=== PATIENT | male | born 1985 | race Caucasian/White ===

== ENCOUNTER 2017-01-06 08:00 | Observation (INO) | payer MEDICAID ==
[~2017-01-06] VITALS: Ht 167.6 cm; Wt 56.8 kg
[2017-01-06 15:06] VITALS: BP 108/80; PULSE 84; TEMP 98.8
== END 2017-01-06 17:00 | disposition home or self-care (01) ==
LOC: COL.ER 08:00 → SURG 08:57
DX: S62.615B Displaced fracture of proximal phalanx of left ring finger, initial encounter for open fracture (principal); W20.8XXA Other cause of strike by thrown, projected or falling object, initial encounter
CPT/HCPCS: J0690; J1100; J1885; J2405; J2704; J3010; J7120

== ENCOUNTER 2022-03-03 21:43 | Emergency (ER) | payer MEDICAID ==
[~2022-03-03] VITALS: Ht 167.6 cm; Wt 59.1 kg
[2022-03-03 21:47] VITALS: TEMP 98.5
[2022-03-03 22:32] LABS: BASO % 0.3 % (0.0-2.0); EOS % 0.4 % (0.0-4.0); GRAN # 9.1 K/mm3 (1.4-6.5); GRAN % 85.5 % (42.2-75.2); HEMATOCRIT 48.8 % (42.0-52.0); HEMOGLOBIN 16.5 g/dl (13.5-18.0); INR 1.2 (0.8-3.0); LYMPH # 0.9 K/mm3 (1.2-3.4); LYMPH % 8.2 % (20.0-51.0); MEAN CELL VOLUME 84 fl (80.0-100.0); MEAN CORPUSCULAR HEMOGLOBIN 28 pg (27-31); MEAN CORPUSCULAR HGB CONC 34 g/dl (33.0-37.0); MEAN PLATELET VOLUME 10.6 fl (7.4-10.4); MONO # 0.6 K/mm3 (0.1-0.6); MONO % 5.2 % (1.7-9.3); PLATELET COUNT 224 K/mm3 (130-400); PROTHROMBIN TIME 13.6 SECONDS (9.7-12.8); RED BLOOD COUNT 5.81 M/mm3 (4.20-5.60); REDCELL DISTRIBUTION WIDTH-CV 12.5 % (11.5-14.5)
[2022-03-03 22:46] LABS: ALBUMIN 4.2 gm/dL (3.5-5.0); BILIRUBIN,TOTAL 2.6 mg/dL (0.2-1.2); CREATININE, serum 0.83 mg/dL (0.72-1.25); POTASSIUM 4.4 mmol/L (3.5-4.5)
[2022-03-04] MEDS ORDERED: PERCOCET 325 MG1 TA2 PO (00:51)
[2022-03-04 01:35] VITALS: BP 105/79; PULSE 56
== END 2022-03-04 01:35 | disposition home or self-care (01) ==
LOC: COL.ER 21:43
PROVIDERS: Physician Assistant
DX: S22.31XA Fracture of one rib, right side, initial encounter for closed fracture (principal); S09.90XA Unspecified injury of head, initial encounter; S27.321A Contusion of lung, unilateral, initial encounter; S63.501A Unspecified sprain of right wrist, initial encounter; Z87.891 Personal history of nicotine dependence; Z88.6 Allergy status to analgesic agent; Z28.310 Unvaccinated for COVID-19; W13.2XXA Fall from, out of or through roof, initial encounter
CPT/HCPCS: J2270; Q9967